=== PATIENT | male | born 1950 | race Caucasian/White ===

== ENCOUNTER 2018-03-05 10:12 | Inpatient (IN) | payer SELFPAY ==
[~2018-03-05] VITALS: Ht 162.6 cm; Wt 68.0 kg
[~2018-03-05 10:12] MED LIST: ASPI-1159 PO; ENAL20TA PO; METF500T6 PO
[2018-03-05 11:36] LABS: BASOPHILS % 0.7 % (0.0-2.0); EOSINOPHILS % 1.9 % (0.0-5.0); HEMATOCRIT. 38.2 % (42.0-52.0); HEMOGLOBIN. 12.7 g/dL (14.0-18.0); LYMPHOCYTES % 25.2 % (20.0-50.0); MEAN CORPUSCULAR HEMOGLOBIN 27.9 pg (28.0-32.0); MEAN CORPUSCULAR VOLUME 83.8 fL (80.0-94.0); MEAN PLATELET VOLUME 7.8 fl (7.4-10.4); NEUTROPHILS % 65.2 % (40.0-76.0); PLATELET 280 x1000/uL (130-400); RED BLOOD CELL COUNT 4.55 mill/uL (4.7-6.1); RED CELL DISTRIBUTION WIDTH 14.5 % (11.6-14.6)
[2018-03-05 11:41] LABS: CHLORIDE 101 mEq/L (98-107)
[2018-03-05 11:42] LABS: PROTHROMBIN TIME 10.1 sec (9.4-11.6)
[2018-03-05 13:01] LABS: CLARITY URINE CLEAR (CLEAR); COLOR URINE YELLOW (YELLOW); KETONES URINE NEGATIVE (NEGATIVE); LEUKOCYTE ESTERASE URINE 2+ (NEGATIVE); NITRITE URINE NEGATIVE (NEGATIVE); OCCULT BLOOD URINE NEGATIVE (NEGATIVE); PROTEIN URINE NEGATIVE (NEGATIVE); SPECIFIC GRAVITY URINE 1.012 (1.005-1.030); UROBILINOGEN URINE 0.2 E.U./dL (0.2-1.0)
[2018-03-05] MEDS ORDERED: MEROPENEM 1,000 MG in SODIUM CHLORIDE 0.9% 100 ML IV ONE (16:00)
[2018-03-05] MEDS ORDERED: GUAIFENESIN 200MG/10ML SUGAR FREE UDC PO PRN (19:15)
[2018-03-05] MEDS ORDERED: CLONIDINE 0.1MG TABLET PO PRN (19:15)
[2018-03-05] MEDS ORDERED: ONDANSETRON HCL 4MG/2ML VIAL IV PRN (19:15)
[2018-03-05] MEDS ORDERED: ACETAMINOPHEN 650MG/20.3ML UDC GT PRN (19:15)
[2018-03-05] MEDS ORDERED: ACETAMINOPHEN 325MG TABLET PO PRN (19:15)
[2018-03-05] MEDS ORDERED: ONDANSETRON 4MG ODT PO PRN (20:15)
[2018-03-05 20:35] VITALS: BP 111/70
[2018-03-05] MEDS: SODIUM CHLORIDE 0.45% 1,000 ML IV SCH (20:57)
[2018-03-05] MEDS ORDERED: ENOXAPARIN 40MG/0.4ML SYR SUBCUT SCH (21:00)
[2018-03-05] MEDS ORDERED: DEXTROSE 50% WATER 50ML SYRINGE IV PRN (21:15)
[2018-03-05] MEDS: BLOOD SUGAR DIAGNOSTIC STRIP TEST SCH (22:08)
[2018-03-06] MEDS: IPRATROPIUM/ALBUTEROL 0.5-3(2.5)MG/3ML NEB HHN SCH ×5 (01:01→16:27)
[2018-03-06 04:00] VITALS: BP 116/68
[2018-03-06] MEDS: SODIUM CHLORIDE 0.45% 1,000 ML IV SCH ×2 (06:21→17:00)
[2018-03-06] MEDS: BLOOD SUGAR DIAGNOSTIC STRIP TEST SCH ×3 (06:21→17:15)
[2018-03-06 08:00] VITALS: BP 105/78
[2018-03-06 08:00] LABS: BASOPHILS % 0.8 % (0.0-2.0); EOSINOPHILS % 2.4 % (0.0-5.0); HEMOGLOBIN. 12.6 g/dL (14.0-18.0); LYMPHOCYTES % 42.8 % (20.0-50.0); MEAN CORPUSCULAR HEMOGLOBIN 27.7 pg (28.0-32.0); MEAN CORPUSCULAR VOLUME 83.8 fL (80.0-94.0); MONOCYTES % 7.8 % (2.0-8.0); NEUTROPHILS % 46.2 % (40.0-76.0); PLATELET 278 x1000/uL (130-400); RED BLOOD CELL COUNT 4.53 mill/uL (4.7-6.1); RED CELL DISTRIBUTION WIDTH 14.7 % (11.6-14.6)
[2018-03-06 12:00] VITALS: BP 120/71
[2018-03-06 16:00] VITALS: BP 117/75
[2018-03-06 17:04] VITALS: BP 117/75
[2018-03-06] MEDS ORDERED: INSULIN LISPRO 100 UNITS/ML SUBCUT SCH (21:00)
== END 2018-03-06 18:20 | disposition home or self-care (01) | DRG 469 ==
LOC: ER 10:12 → 6EST 16:17 → EDBEDREQ 16:25 → EDBEDREQTM 16:25 → ENRESERV 19:16 → 6EST 21:00
PROVIDERS: ADMIT Internal Medicine Geriatric Medicine; ATTEND Internal Medicine Geriatric Medicine
DX: N17.9 Acute kidney failure, unspecified (principal); E11.65 Type 2 diabetes mellitus with hyperglycemia; I10 Essential (primary) hypertension; N39.0 Urinary tract infection, site not specified; B96.1 Klebsiella pneumoniae [K. pneumoniae] as the cause of diseases classified elsewhere; B96.20 Unspecified Escherichia coli [E. coli] as the cause of diseases classified elsewhere; Z16.10 Resistance to unspecified beta lactam antibiotics; J45.909 Unspecified asthma, uncomplicated; Z16.12 Extended spectrum beta lactamase (ESBL) resistance; Z79.82 Long term (current) use of aspirin; Z79.84 Long term (current) use of oral hypoglycemic drugs; Z90.49 Acquired absence of other specified parts of digestive tract
CPT/HCPCS: 36415; 76770; 80048; 80053; 81003; 82962; 83036; 83605; 83690; 85025; 85610; 87077; 87086; 87186; 93005; 96365; 99285; J1650; J2185; J7050; J7620

== ENCOUNTER 2019-11-25 05:33 | Inpatient (IN) | payer MEDICAID ==
[~2019-11-25] VITALS: Ht 165.1 cm; Wt 68.0 kg
[~2019-11-25 05:33] MED LIST changes: -ASPI-1159 PO; +ASPI-1497 PO; +METF-414 PO; -METF500T6 PO
[2019-11-25 06:29] LABS: BASOPHILS % 0.9 % (0.0-2.0); EOSINOPHILS % 4.7 % (0.0-5.0); HEMATOCRIT. 39.1 % (42.0-52.0); HEMOGLOBIN. 13.2 g/dL (14.0-18.0); LYMPHOCYTES % 30.7 % (20.0-50.0); MEAN PLATELET VOLUME 8.5 fl (7.4-10.4); MONOCYTES % 6.8 % (2.0-8.0); NEUTROPHILS % 56.9 % (40.0-76.0); PLATELET 172 x1000/uL (130-400); RED BLOOD CELL COUNT 4.54 mill/uL (4.7-6.1); RED CELL DISTRIBUTION WIDTH 15.3 % (11.6-14.6)
[2019-11-25] MEDS ORDERED: ALBUTEROL 6.7GM HFA INHALER ORI ONE (06:30)
[2019-11-25] MEDS ORDERED: SODIUM CHLORIDE 0.9% 500 ML IV ONE (06:35)
[2019-11-25 07:51] LABS: CHLORIDE 103 mEq/L (98-107)
[2019-11-25 08:00] VITALS: BP 141/85
[2019-11-25] MEDS ORDERED: AMLODIPINE 5MG TABLET PO SCH (09:00)
[2019-11-25] MEDS ORDERED: ALBUTEROL 6.7GM HFA INHALER ORI PRN (09:00)
[2019-11-25] MEDS ORDERED: ACETAMINOPHEN 325MG TABLET PO PRN (09:00)
[2019-11-25] MEDS ORDERED: DEXTROSE 50% WATER 50ML SYRINGE IV PRN (09:00)
[2019-11-25] MEDS ORDERED: ENOXAPARIN 40MG/0.4ML SYR SUBCUT SCH (09:00)
[2019-11-25] MEDS ORDERED: ONDANSETRON HCL 4MG/2ML INJ IV PRN (09:00)
[2019-11-25 09:30] VITALS: BP 143/85
[2019-11-25 12:00] VITALS: BP 128/82
[2019-11-25] MEDS: BLOOD SUGAR DIAGNOSTIC STRIP TEST SCH ×2 (12:40→17:40)
[2019-11-25] MEDS ORDERED: PNEUMOCOCCAL 23-VAL P-SAC VAC 0.5 ML IM ONE (13:00)
[2019-11-25] MEDS ORDERED: INFLUENZA VIRUS VACCINE(AFLURIA) 0.5ML SYR IM ONE (13:00)
[2019-11-25] MEDS ORDERED: ALBU18HF2 IH (13:24)
[2019-11-25] MEDS: INSULIN LISPRO 100 UNITS/ML SUBCUT SCH ×2 (15:00→18:10)
[2019-11-25 16:00] VITALS: BP 131/78
[2019-11-25] MEDS ORDERED: MED4 MT (16:26)
[2019-11-25 17:15] VITALS: BP 131/78
== END 2019-11-25 19:02 | disposition home or self-care (01) | DRG 141 ==
LOC: ER 05:33 → 7WST 06:35 → ENRESERV 07:43
PROVIDERS: ADMIT Internal Medicine; ATTEND Internal Medicine
DX: J45.901 Unspecified asthma with (acute) exacerbation (principal); E11.9 Type 2 diabetes mellitus without complications; D64.9 Anemia, unspecified; I10 Essential (primary) hypertension; Z20.828 Contact with and (suspected) exposure to other viral communicable diseases; Z79.82 Long term (current) use of aspirin; Z79.84 Long term (current) use of oral hypoglycemic drugs; Z79.899 Other long term (current) drug therapy; Z90.49 Acquired absence of other specified parts of digestive tract
CPT/HCPCS: 36415; 71045; 80053; 82728; 82962; 83605; 83880; 84145; 84484; 85025; 85379; 86140; 87635; 87804; 90686; 90732; 93005; 94640; 99291; J1650; J1815; J7040

== ENCOUNTER → 2020-10-15 | Outpatient (CLI) | payer MEDICAID ==
[~2020-10-15] MED LIST changes: +ABIL5 PO; +ALBU18HF2 IH; +ATEN50TA PO; -ENAL20TA PO; +ENAL20TA18 PO; +FENTANYL CITRATE/PF 50MCG/ML 2ML VIAL ONE; +INSU100I24 SQ; +IODIXANOL 320MG/ML 200ML BOTTLE ONE; +IOHEXOL-300 100 ML BOTTLE ONE; +LIDOCAINE HCL 1% 20ML VIAL (Pyxis) INJ ONE; +MED4 MT; +METF-874 PO; +METO-539 PO; +MIDAZOLAM HCL 2 MG/2 ML VIAL ONE; +[UNRECOGNIZED DRUG - CODE]
== END | disposition home or self-care (01) ==
LOC: LAB 11:03
PROVIDERS: ATTEND Specialist
DX: Z01.812 Encounter for preprocedural laboratory examination (principal); Z20.822 Contact with and (suspected) exposure to COVID-19
CPT/HCPCS: 87426